=== PATIENT | female | born 1995 | race African-American/Black ===

== ENCOUNTER 2020-02-02 14:20 | Emergency (ER) | payer OTHER ==
[~2020-02-02] VITALS: Ht 162.6 cm; Wt 51.3 kg
[2020-02-02] MEDS ORDERED: PRENATABS RX T1 EACH (14:28)
== END 2020-02-02 18:49 | disposition home or self-care (01) ==
LOC: ER 14:20
DX: O46.8X1 Other antepartum hemorrhage, first trimester (principal); Z3A.10 10 weeks gestation of pregnancy

== ENCOUNTER 2020-08-22 05:22 | Inpatient (IN) | payer OTHER ==
[~2020-08-22] VITALS: Ht 162.6 cm; Wt 73.9 kg
[~2020-08-22 05:22] MED LIST: PRENATABS RX T1 EACH
== END 2020-08-24 16:15 | disposition home or self-care (01) | DRG 807 ==
LOC: LDR 05:22 → OB/GYN 05:22
PROVIDERS: ADMIT Specialist; ATTEND Specialist
PROC: 10E0XZZ Delivery of Products of Conception, External Approach (ICD-10-PCS; principal; 2020-08-22)
PROC: 0W8NXZZ Division of Female Perineum, External Approach (ICD-10-PCS; 2020-08-22)
PROC: 4A1HXFZ Monitoring of Products of Conception, Cardiac Rhythm, External Approach (ICD-10-PCS; 2020-08-22)
DX: O80 Encounter for full-term uncomplicated delivery (principal); Z37.0 Single live birth; Z3A.39 39 weeks gestation of pregnancy; Z20.822 Contact with and (suspected) exposure to COVID-19